=== PATIENT | female | born 1930 | race Two or more races ===

== ENCOUNTER 2016-11-18 20:03 | Emergency (ER) | payer MEDICARE ==
[~2016-11-18] VITALS: Ht 154.9 cm; Wt 51.7 kg
[2016-11-18 20:04] VITALS: BP 156/87
[2016-11-18] MEDS ORDERED: METO25TAB PO (20:12)
[2016-11-18] MEDS ORDERED: ASPI81TA85 PO (20:12)
[2016-11-18] MEDS ORDERED: PRIM250T5 PO (20:12)
--- NOTE | 2016-11-20 08:29 | ECGEPIP ---
Stationary ECG Study [facility] - ED Test Date: 2016-11-18 Pat Name: DAMIÁN LEONARDO Department: Room: - Gender: F [employer] Vice President: artis : 1930 Requested By: MERCEDES Lynn Order Number: [id number] Reading MD: Arely Guadarrama Measurements Intervals [place] Rate: 83 P: 96 SC: 200 QRS: -15 QRSD: 80 T: 15 QT: 378 QTc: 445 Interpretive Statements ELECTRONIC ATRIAL PACEMAKER MODERATE VOLTAGE CRITERIA FOR LVH, CONSIDER NORMAL VARIANT ABNORMAL RHYTHM ECG NO PRIOR FOR COMPARISON Electronically Signed On 11-20-2016 8:29:17 EDT by Arely Guadarrama
== END 2016-11-18 22:06 | disposition home or self-care (01) ==
LOC: M ED 21:49
DX: G25.0 Essential tremor (principal); G20 Parkinson's disease; I10 Essential (primary) hypertension; Z79.899 Other long term (current) drug therapy; Z79.82 Long term (current) use of aspirin

== ENCOUNTER → 2016-11-20 | Outpatient (REF) | payer MEDICARE ==
[~2016-11-20] MED LIST: ASPI81TA85 PO; METO25TAB PO; PRIM250T5 PO
[2016-11-20 12:56] LABS: FOLATE 11.8 NG/ML; VITAMIN B12 LEVEL 467 PG/ML
[2016-11-20 13:01] LABS: ALBUMIN 3.9 GM/DL (3.2-5.2); ALBUMIN/GLOBULIN RATIO 1.18 (1.00-1.93); ALKALINE PHOSPHATASE 73 U/L (45-117); ALT/SGPT 18 U/L (12-78); ANION GAP 8 MEQ/L (8-16); AST/SGOT 19 U/L (15-37); BILIRUBIN,TOTAL 0.6 MG/DL (0.2-1.0); BLOOD UREA NITROGEN 14 MG/DL (7-18); CALCIUM LEVEL 8.9 MG/DL (8.8-10.2); CARBON DIOXIDE LEVEL 28 MEQ/L (21-32); CHLORIDE LEVEL 101 MEQ/L (98-107); CREATININE FOR GFR 0.88 MG/DL (0.55-1.02); FREE T4 0.81 NG/DL (0.76-1.46); GLOMERULAR FILTRATION RATE > 60.0 (>32); GLUCOSE, FASTING 90 MG/DL (83-110); POTASSIUM SERUM 4.3 MEQ/L (3.5-5.1); SODIUM LEVEL 137 MEQ/L (136-145); TOTAL PROTEIN 7.2 GM/DL (6.4-8.2)
== END ==
LOC: M SFHCADAM 08:00
PROVIDERS: ATTEND Family Medicine
DX: I10 Essential (primary) hypertension (principal); R25.1 Tremor, unspecified; R20.2 Paresthesia of skin

== ENCOUNTER → 2017-06-25 | Outpatient (CLI) | payer MEDICARE ==
[~2017-06-25] MED LIST changes: +METO25TA4 PO; -METO25TAB PO; -PRIM250T5 PO; +PRIM250T8 PO
--- NOTE | 2017-06-25 10:16 | REP ---
PA and lateral chest: There are no comparisons. The lung jung are hyperinflated and hyperlucent compatible with COPD, however, requiring clinical confirmation. There are no focal infiltrates or effusions. There is a 11 mm nodular density in the left costophrenic angle of uncertain significance in the absence of comparison studies. This could be discoid atelectasis or subsegmental infiltrate or a true lung nodule. I would recommend follow-up PA and lateral views of the chest in approximately 2-4 weeks. At this density is persistent and then consider CT. There is a 5 mm nodule inferiorly in the right lung. This could also be followed up with CT in the absence of comparison studies to document stability. The central right hilus appears enlarged. This may represent pulmonary hypertension. Left hilus is obscured by the tortuous descending thoracic aorta. Cardiac size is upper normal. Mediastinum and bony thorax are unremarkable for patient age. There is a dual-chamber pacemaker. Impression: There is a nodular density in each lung. Follow-up plain films and CT might be considered as discussed in the body of the report. There are findings compatible with COPD, requiring clinical confirmation. Enlarged right hilus suggestive of pulmonary hypertension. Left hilus is obscured. Signed by Denis Min MD 06/25/2017 10:08 A
== END ==
LOC: M ADAMS 09:49
PROVIDERS: ATTEND Family Medicine
DX: R05 Cough (principal); R91.1 Solitary pulmonary nodule; J98.4 Other disorders of lung; Z95.0 Presence of cardiac pacemaker

== ENCOUNTER → 2017-07-08 | Outpatient (CLI) | payer MEDICARE ==
--- NOTE | 2017-07-08 12:30 | REP ---
Clinical: Cough. Technique: PA and lateral. Comparison: 06/25/2017. Findings: Stable cardiomegaly and diffuse chronic interstitial changes including calcified granulomata. No acute consolidation, effusion, or pneumothorax. Skeletal structures demonstrate age-related osteopenia and degenerative changes. Impression: Stable chronic appearing changes and cardiomegaly. As previously noted, pulmonary hypertension cannot be excluded. No obvious acute cardiopulmonary process. Signed by Juanito Garcia MD 07/08/2017 12:22 P
== END ==
LOC: M ADAMS 11:41
PROVIDERS: ATTEND Family Medicine
DX: R05 Cough (principal); I51.7 Cardiomegaly